=== PATIENT | male | born 1945 | race Caucasian/White ===

== ENCOUNTER → 2016-11-15 | Outpatient (CLI) | payer MEDICARE, OTHER ==
[~2016-11-15] MED LIST: ASPIRIN 81M81 MG/TA2 PO; CARDI-OMEGA1000 MG PO; CEPHALEXIN500 M1 PO; COUMADIN 6MG6 MG/TAB PO; COUMADIN 77.5 MG/TAB PO; D-31000 IU PO; DIOVAN 160MG160 MG PO; DIOVAN HCT 25 M1 TAB PO; EFFEXOR 75M75 MG/TAB PO; ELIQUIS 5MG PO; ERGOCALCIFER50000 IU PO; FERATE27 MG PO; FLOMAX 0.40.4 MG/CAP PO; GLUCOSAMINE CHO1 CAP PO; GREEN COFFEE PO; IMODIUM 2MG CAPS2 MG PO; IRON TABLETS325 MG PO; LIPITOR 40MG TA40 MG PO; MOBIC 7.5MG7.5 MG PO; MULTI VITAMINS1 TAB PO; NEURONTIN300 MG/CAP PO; OSTEO-BI-FLEX 21 TAB PO; PRINIVIL10 MG PO; PROTOPIC0.03% TP; SINGULAIR 110 MG/TAB PO; ULTRAM 50MG TAB50 MG PO; VYTORIN 10 MG-81 TAB PO; [UNRECOGNIZED DRUG - OTHER] PO
== END ==
LOC: COL.RAD 10:27
DX: Z13.6 Encounter for screening for cardiovascular disorders (principal); I70.0 Atherosclerosis of aorta; Z87.891 Personal history of nicotine dependence

== ENCOUNTER 2016-11-20 11:53 | Day surgery (SDC) | payer MEDICARE, OTHER ==
[~2016-11-20] VITALS: Ht 177.8 cm; Wt 90.9 kg
[~2016-11-20 11:53] MED LIST changes: -EFFEXOR 75M75 MG/TAB PO; -ELIQUIS 5MG PO; -FLOMAX 0.40.4 MG/CAP PO; -GREEN COFFEE PO; -IRON TABLETS325 MG PO; -PRINIVIL10 MG PO; -[UNRECOGNIZED DRUG - OTHER] PO
[2016-11-20 12:24] LABS: HEMATOCRIT 46.3 % (42.0-52.0); HEMOGLOBIN 15.2 g/dl (13.5-18.0); MEAN CELL VOLUME 92 fl (80.0-100.0); MEAN CORPUSCULAR HEMOGLOBIN 30 pg (27.0-31.0); MEAN CORPUSCULAR HGB CONC 33 g/dl (33.0-37.0); MEAN PLATELET VOLUME 9.4 fl (7.4-10.4); PLATELET COUNT 276 K/mm3 (130-400); RED BLOOD COUNT 5.05 M/mm3 (4.20-5.60); REDCELL DISTRIBUTION WIDTH-CV 12.6 % (11.5-14.5)
[2016-11-20 12:26] VITALS: BP 118/72; PULSE 63; TEMP 98.2
[2016-11-20 12:32] LABS: CALCIUM 9.2 mg/dL (8.4-10.2); CREATININE, serum 0.8 mg/dL (0.66-1.25); POTASSIUM 4.1 mmol/L (3.4-5.0)
[2016-11-20] MEDS ORDERED: ELIQUIS 5MG PO (12:46)
[2016-11-20] MEDS ORDERED: EFFEXOR 75M75 MG/TAB PO (12:47)
[2016-11-20] MEDS ORDERED: IRON TABLETS325 MG PO (12:48)
[2016-11-20] MEDS ORDERED: FLOMAX 0.40.4 MG/CAP PO (12:48)
[2016-11-20] MEDS ORDERED: PRINIVIL10 MG PO (12:49)
[2016-11-20] MEDS ORDERED: GREEN COFFEE PO (12:50)
[2016-11-20] MEDS ORDERED: [UNRECOGNIZED DRUG - OTHER] PO (12:50)
[2016-11-20 13:58] VITALS: BP 141/77; PULSE 55
--- NOTE | 2016-11-20 14:45 | NUR ---
PT BACK FROM [facility] VIA BED. 152/82, 99%, PULSE 54, RR AT 16. PT IS ALERT AND ORIENATED X3, DRESSING OVER CHEST SITE, CLEAN AND DRY. READS BOOK, DRINKS POP. NO C/O, APPTS MADE FOR PT.
--- NOTE | 2016-11-20 15:12 | NUR ---
INT D'CD, PT UP IN ROOM DRESSED, WALKED IN [place], DISCHARGE INST. GIVEN BY FRANKIE FELIXTELEMETRY TECH CARE AND FOLLOWUP, PT DISCHARGED AMB.
== END 2016-11-20 15:20 | disposition home or self-care (01) ==
LOC: COL.CAR 11:53
PROVIDERS: Internal Medicine Interventional Cardiology
DX: Z45.09 Encounter for adjustment and management of other cardiac device (principal); I48.91 Unspecified atrial fibrillation; M79.604 Pain in right leg; M79.605 Pain in left leg; G62.9 Polyneuropathy, unspecified; I49.9 Cardiac arrhythmia, unspecified; I82.409 Acute embolism and thrombosis of unspecified deep veins of unspecified lower extremity; R60.0 Localized edema; J44.9 Chronic obstructive pulmonary disease, unspecified; Z79.01 Long term (current) use of anticoagulants; I10 Essential (primary) hypertension; G47.33 Obstructive sleep apnea (adult) (pediatric); I25.10 Atherosclerotic heart disease of native coronary artery without angina pectoris; E66.9 Obesity, unspecified; Z87.891 Personal history of nicotine dependence; R00.1 Bradycardia, unspecified

== ENCOUNTER → 2017-03-05 | Outpatient (CLI) | payer MEDICARE, OTHER ==
[~2017-03-05] MED LIST changes: +EFFEXOR 75M75 MG/TAB PO; +ELIQUIS 5MG PO; +FLOMAX 0.40.4 MG/CAP PO; +GREEN COFFEE PO; +IRON TABLETS325 MG PO; +PRINIVIL10 MG PO; +[UNRECOGNIZED DRUG - OTHER] PO
== END ==
LOC: MHCPAIN 10:41
DX: G89.29 Other chronic pain (principal); M47.27 Other spondylosis with radiculopathy, lumbosacral region; M48.061 Spinal stenosis, lumbar region without neurogenic claudication; Z87.891 Personal history of nicotine dependence
CPT/HCPCS: G0463

== ENCOUNTER → 2017-04-05 | Outpatient (CLI) | payer MEDICARE, OTHER | LOC: MHCPAIN 07:35 | DX: M47.27 Other spondylosis with radiculopathy, lumbosacral region (principal); M51.26 Other intervertebral disc displacement, lumbar region; M48.061 Spinal stenosis, lumbar region without neurogenic claudication | CPT/HCPCS: J1100; J2250; J3010; Q9967 ==

== ENCOUNTER → 2017-04-17 | Outpatient (CLI) | payer MEDICARE, OTHER | LOC: MHCPAIN 07:57 | DX: G89.29 Other chronic pain (principal); M47.27 Other spondylosis with radiculopathy, lumbosacral region; M48.061 Spinal stenosis, lumbar region without neurogenic claudication; Z87.891 Personal history of nicotine dependence | CPT/HCPCS: G0463 ==

== ENCOUNTER → 2017-05-17 | Outpatient (CLI) | payer MEDICARE, OTHER | LOC: MHCPAIN 07:33 | DX: M47.817 Spondylosis without myelopathy or radiculopathy, lumbosacral region (principal); M51.06 Intervertebral disc disorders with myelopathy, lumbar region; M48.061 Spinal stenosis, lumbar region without neurogenic claudication | CPT/HCPCS: J1100; Q9967 ==

== ENCOUNTER → 2017-06-13 | Outpatient (CLI) | payer MEDICARE, OTHER | LOC: MHCPAIN 07:48 | DX: G89.29 Other chronic pain (principal); M47.27 Other spondylosis with radiculopathy, lumbosacral region; M48.061 Spinal stenosis, lumbar region without neurogenic claudication; Z87.891 Personal history of nicotine dependence | CPT/HCPCS: G0463 ==

== ENCOUNTER → 2017-07-05 | Outpatient (CLI) | payer MEDICARE, OTHER | LOC: MHCPAIN 08:01 | DX: M47.27 Other spondylosis with radiculopathy, lumbosacral region (principal); M51.27 Other intervertebral disc displacement, lumbosacral region | CPT/HCPCS: J1100; Q9967 ==

== ENCOUNTER → 2017-07-09 | Outpatient (CLI) | payer MEDICARE, OTHER | LOC: COL.RAD 09:35 | DX: M48.061 Spinal stenosis, lumbar region without neurogenic claudication (principal) ==

== ENCOUNTER → 2017-07-11 | Outpatient (CLI) | payer MEDICARE, OTHER | LOC: MHCPAIN 08:37 | DX: G89.29 Other chronic pain (principal); M47.27 Other spondylosis with radiculopathy, lumbosacral region; M48.061 Spinal stenosis, lumbar region without neurogenic claudication; Z87.891 Personal history of nicotine dependence | CPT/HCPCS: G0463 ==

== ENCOUNTER → 2017-07-26 | Outpatient (CLI) | payer MEDICARE, OTHER | LOC: MHCPAIN 09:37 | DX: M47.817 Spondylosis without myelopathy or radiculopathy, lumbosacral region (principal) ==

== ENCOUNTER → 2017-08-08 | Outpatient (CLI) | payer MEDICARE, OTHER | LOC: MHCPAIN 09:48 | DX: G89.29 Other chronic pain (principal); M47.27 Other spondylosis with radiculopathy, lumbosacral region; M48.061 Spinal stenosis, lumbar region without neurogenic claudication; Z87.891 Personal history of nicotine dependence | CPT/HCPCS: G0463 ==

== ENCOUNTER → 2017-09-10 | Outpatient (CLI) | payer MEDICARE, OTHER | LOC: COL.RAD 11:39 | DX: M51.36 Other intervertebral disc degeneration, lumbar region (principal); M48.07 Spinal stenosis, lumbosacral region; M25.78 Osteophyte, vertebrae; Z95.828 Presence of other vascular implants and grafts ==

== ENCOUNTER 2018-12-23 09:24 | Day surgery (SDC) | payer MEDICARE, OTHER ==
[~2018-12-23] VITALS: Ht 172.7 cm; Wt 89.1 kg
[2018-12-23] MEDS ORDERED: PROTOP 0.03% 30GM TP (10:07)
[2018-12-23] MEDS ORDERED: SINGULAIR 110 MG/TAB PO (10:08)
[2018-12-23] MEDS ORDERED: DESOWEN TOP (10:08)
[2018-12-23] MEDS ORDERED: MEGA MULTIVITAM1 TAB PO (10:09)
[2018-12-23] MEDS ORDERED: OSTEO-BI-FLEX 21 TAB PO (10:09)
[2018-12-23] MEDS ORDERED: CENTRUM SILVER1 TAB PO (10:09)
[2018-12-23] MEDS ORDERED: VIAGRA100 M1 PO (10:10)
[2018-12-23] MEDS ORDERED: FLOMAX 0.40.4 MG/CAP PO (10:10)
[2018-12-23] MEDS ORDERED: VITAMIN D 1001000 IU PO (10:10)
[2018-12-23] MEDS ORDERED: QUESTRAN4 GM/9 GM PO (10:11)
[2018-12-23] MEDS ORDERED: PRINIVIL5 MG PO (10:11)
[2018-12-23] MEDS ORDERED: LEXAPRO 10MG10 MG PO (10:11)
[2018-12-23] MEDS ORDERED: RT ADVAIR 128 DISKUS IH (10:11)
[2018-12-23 10:12] VITALS: BP 135/78; PULSE 61; TEMP 98.4
[2018-12-23 12:30] VITALS: BP 132/85; PULSE 60; TEMP 97.7
--- NOTE | 2018-12-23 12:30 | NUR ---
Patient arrives to [facility] via cart, accompanied by endo RN Andre. Bedside report received. Patient ambulates with standby assist to chair in room. Monitoring applied - VSS and WNL on room air. Denies any pain or nausea. Offered and receives juice and a muffin to eat. Call light in reach.
--- NOTE | 2018-12-23 12:39 | NUR ---
Dr. Walker is at the bedside at this time.
[2018-12-23 12:45] VITALS: BP 140/65; PULSE 57
--- NOTE | 2018-12-23 12:45 | NUR ---
Patient resting comfortably in room. Tolerating PO well. Denies any pain or nausea.
[2018-12-23 13:00] VITALS: BP 135/65; PULSE 54
--- NOTE | 2018-12-23 13:33 | NUR ---
Patient has met discharge criteria. Discharge instructions discussed, denies any questions, and verbalizes understanding. PIV removed with catheter intact and hemostasis achieved. Changes to clothing independently. Escorted to exit by staff and discharged to home with ride in private vehicle at 1333.
== END 2018-12-23 13:33 | disposition home or self-care (01) ==
LOC: SDCO 09:24
DX: K91.850 Pouchitis (principal); K51.90 Ulcerative colitis, unspecified, without complications; D64.9 Anemia, unspecified; I10 Essential (primary) hypertension; J45.909 Unspecified asthma, uncomplicated; G47.33 Obstructive sleep apnea (adult) (pediatric); M19.90 Unspecified osteoarthritis, unspecified site; Z86.718 Personal history of other venous thrombosis and embolism; Z87.891 Personal history of nicotine dependence; Z90.49 Acquired absence of other specified parts of digestive tract
CPT/HCPCS: J2704; J7120

== ENCOUNTER → 2018-12-31 | Outpatient (CLI) | payer MEDICARE, OTHER ==
[~2018-12-31] MED LIST changes: +CENTRUM SILVER1 TAB PO; +DESOWEN TOP; +LEXAPRO 10MG10 MG PO; +MEGA MULTIVITAM1 TAB PO; +PRINIVIL5 MG PO; +PROTOP 0.03% 30GM TP; +QUESTRAN4 GM/9 GM PO; +RT ADVAIR 128 DISKUS IH; +VIAGRA100 M1 PO; +VITAMIN D 1001000 IU PO
== END ==
LOC: COL.RAD 07:32
DX: M48.02 Spinal stenosis, cervical region (principal); M50.321 Other cervical disc degeneration at C4-C5 level; M65.332 Trigger finger, left middle finger

== ENCOUNTER 2020-12-08 06:27 | Day surgery (SDC) | payer MEDICARE, OTHER ==
[~2020-12-08] VITALS: Ht 172.7 cm; Wt 109.1 kg
[2020-12-08 07:32] VITALS: BP 119/77; PULSE 68; TEMP 98.2
[2020-12-08] MEDS ORDERED: ELIQUIS 5MG PO (08:04)
[2020-12-08] MEDS ORDERED: TESTOSTERONE PO (08:10)
[2020-12-08] MEDS ORDERED: CENTRUM SILVER1 CTB PO (08:10)
[2020-12-08] MEDS ORDERED: [UNRECOGNIZED DRUG - OTHER] PO (08:15)
[2020-12-08] MEDS ORDERED: KRILL OIL 5001 EACH PO (08:16)
[2020-12-08] MEDS ORDERED: NEURIVA DE-STR1 EACH PO (08:16)
[2020-12-08] MEDS ORDERED: NATURE'S BLEND600 M2 PO (08:17)
[2020-12-08] MEDS ORDERED: COZAAR 25MG25 MG/TAB PO (08:17)
[2020-12-08 08:25] VITALS: BP 109/54; PULSE 61; TEMP 98.4
[2020-12-08 08:30] VITALS: BP 105/53; PULSE 60
[2020-12-08 08:45] VITALS: BP 117/57; PULSE 54
[2020-12-08 09:00] VITALS: BP 131/70; PULSE 64
[2020-12-08 09:15] VITALS: BP 133/63; PULSE 54
--- NOTE | 2020-12-08 09:50 | NUR ---
0825 Pt returns from endo procedure via cart and RN assist to [facility]. Pt ambulates from cart to recliner with RN assist. Monitors on and alarms set. Call light within reach. Report received from ELVIRA Robertson. Pt alert and oriented. Pt requests soda and muffin. Pt denies any pain or nausea. 0900 Pt taking food and drink well. No complications noted. 0930 Discharge instructions given to pt. All questions answered to his satisfaction. Handed to pt are a thank you card and discharge information. 0950 Pt transferred out of the hospital via wheelchair and [place] assist, to private vehicle driven by pt's .
== END 2020-12-08 09:50 | disposition home or self-care (01) ==
LOC: SDCO 06:27
DX: D13.39 Benign neoplasm of other parts of small intestine (principal); K91.89 Other postprocedural complications and disorders of digestive system; K62.0 Anal polyp; K52.9 Noninfective gastroenteritis and colitis, unspecified; K92.1 Melena; J45.909 Unspecified asthma, uncomplicated; E78.5 Hyperlipidemia, unspecified; I10 Essential (primary) hypertension; G47.33 Obstructive sleep apnea (adult) (pediatric); M19.90 Unspecified osteoarthritis, unspecified site; D64.9 Anemia, unspecified; F32.9 Major depressive disorder, single episode, unspecified; Z98.0 Intestinal bypass and anastomosis status; Z99.89 Dependence on other enabling machines and devices; Z20.822 Contact with and (suspected) exposure to COVID-19; Z79.899 Other long term (current) drug therapy; Z79.01 Long term (current) use of anticoagulants
CPT/HCPCS: J2704; J7030

== ENCOUNTER 2023-10-02 08:07 | Day surgery (SDC) | payer MEDICARE, OTHER ==
[~2023-10-02] VITALS: Ht 172.7 cm; Wt 105.1 kg
[~2023-10-02 08:07] MED LIST changes: +CENTRUM SILVER1 CTB PO; +COZAAR 25MG25 MG/TAB PO; +KRILL OIL 5001 EACH PO; +LR 1,000 ML IV SCH; +NATURE'S BLEND600 M2 PO; +NEURIVA DE-STR1 EACH PO; +TESTOSTERONE PO; -VITAMIN D 1001000 IU PO; +Vitamin D3 PO; +[UNRECOGNIZED DRUG - OTHER] PO
--- NOTE | 2023-10-02 09:10 | NUR ---
INFORMED OF PATIENT TAKING ELIQUIS AND KRILL OIL TODAY. OK TO PROCEED WITH PROCEDURE TODAY PER .
[2023-10-02] MEDS ORDERED: Lidocaine PF 2% (20 MG/ML) 5 ML VIAL ONE (09:25)
[2023-10-02] MEDS ORDERED: fentaNYL 50 MCG/ML 2 ML VIAL ONE (09:25)
[2023-10-02] MEDS ORDERED: Ondansetron 4 MG/2 ML VIAL ONE (09:25)
[2023-10-02] MEDS ORDERED: dexAMETHasone 10 MG/ML VIAL ONE (09:25)
--- NOTE | 2023-10-02 09:35 | NUR ---
DISCUSSED PATIENT'S HOME MEDS-SPECIFICALLY PATIENT REPORT OF WEIGHT LOSS CAPSULES TAKEN TODAY WITH AARON Gómez CRNA.
[2023-10-02] MEDS ORDERED: hydrALAZINE 20 MG/ML 1 ML VIAL IV PRN ×2 (09:45→11:30)
[2023-10-02] MEDS ORDERED: Ketorolac 15 MG/ML VIAL IV PRN (09:45)
[2023-10-02] MEDS ORDERED: Ondansetron 4 MG/2 ML VIAL IV PRN ×2 (09:45→11:30)
[2023-10-02] MEDS ORDERED: HYDROmorphone 1 MG/1 ML SYRINGE [PACU/SDC ONLY] IV PRN ×2 (09:45→11:30)
[2023-10-02] MEDS ORDERED: Meperidine 50 MG/ML 1 ML VIAL IV PRN ×2 (09:45→11:30)
[2023-10-02] MEDS ORDERED: fentaNYL 50 MCG/ML 1 ML SYRINGE/VIAL [PACU/SDC ONLY] IV PRN ×2 (09:45→11:30)
[2023-10-02] MEDS ORDERED: LEXAPRO 10MG10 MG PO (10:02)
[2023-10-02] MEDS ORDERED: REQUIP 1MG T1 MG/TAB PO (10:02)
[2023-10-02] MEDS ORDERED: NORCO 325 MG-51 TAB PO (10:03)
[2023-10-02] MEDS ORDERED: [UNRECOGNIZED DRUG - OTHER] PO (10:04)
[2023-10-02] MEDS ORDERED: [UNRECOGNIZED DRUG - OTHER] PO (10:05)
[2023-10-02] MEDS ORDERED: [UNRECOGNIZED DRUG - OTHER] PO (10:06)
[2023-10-02 10:19] VITALS: BP 123/59; PULSE 57; TEMP 97.7
[2023-10-02] MEDS ORDERED: Lidocaine 2% (20 MG/ML) 20 ML UROJET UR ONE (10:40)
[2023-10-02] MEDS ORDERED: ePHEDrine 50 MG/ML VIAL ONE (10:42)
[2023-10-02] MEDS ORDERED: Hyoscyamine 0.125 MG Sublingual TAB SL PRN (11:45)
[2023-10-02] MEDS ORDERED: oxyCODONE/Acetaminophen 5-325 MG TAB PO PRN (11:45)
[2023-10-02 11:55] VITALS: BP 141/60; PULSE 60; TEMP 97
--- NOTE | 2023-10-02 11:55 | NUR ---
PATIENT RETURNED TO [facility] VIA CART, ALERT AND ORIENTED X3. DENIES PAIN, NAUSEA AND SHORTNESS OF BREATH. BREATHING REGULAR AND UNLABORED ON ROOM AIR. SKIN WARM AND DRY. RIGHT HAND IV IN PLACE. SITE CLEAN, DRY AND INTACT. NURSE HANDOFF COMPLETED IN ROOM. SEE CHART FOR VITAL SIGNS. PATIENT HAS NO COMPLAINTS AND HAD WATER WITH JELLO. NO DYSPHAGIA. CALL LIGHT IN REACH. SPOUSE, DUANE, PRESENT IN ROOM.
[2023-10-02 12:00] VITALS: BP 146/88; PULSE 64
[2023-10-02 12:14] VITALS: BP 132/75; PULSE 64
[2023-10-02 12:25] VITALS: BP 135/76; PULSE 68
--- NOTE | 2023-10-02 12:40 | NUR ---
1219: DISCHARGE TEACHING COMPLETED WITH PRINTED EDUCATION AND INSTRUCTIONS SENT HOME WITH PATIENT AND SPOUSE. FOLLOW UP APPOINTMENT DATE, TIME AND LOCATION COMMUNICATED TO PATIENT AND SPOUSE. BOTH VERBALIZED UNDERSTANDING. 1223: PATIENT AMBULATED TO RESTROOM WITH STEADY GAIT AND VOIDED WITHOUT DIFFICULTY. DENIES CLOTS IN URINE. 1225: DENIES PAIN AND NAUSEA. IV REMOVED. GAUZE AND COBAN PLACED OVER SITE. 1240: PATIENT CHANGED INTO PERSONAL CLOTHING AND DISCHARGED HOME WITH [facility] (SPOUSE) TRANSPORT.
== END 2023-10-02 12:40 | disposition home or self-care (01) ==
LOC: SDCO 08:07
DX: N20.1 Calculus of ureter (principal); G47.33 Obstructive sleep apnea (adult) (pediatric); Z87.891 Personal history of nicotine dependence
CPT/HCPCS: C1758; C1769; C2617; J0690; J1100; J2405; J2704; J3010; J7120